=== PATIENT | female | born 1980 | race Caucasian/White ===

== ENCOUNTER 2017-05-31 15:54 | Inpatient (IN) | payer BC ==
[~2017-05-31] VITALS: Ht 167.6 cm; Wt 87.5 kg
[~2017-05-31 15:54] MED LIST: Benzocaine 60 ML TP; DOCU240C67 PO; GLY25 FT; IBUP600T22 PO; LEVO50TA86 PO; LOR5/325 PO; LORA10CA3 PO; Lanolin TP; PNV11TAB; THYR30TA21 PO; TUCKS TOP
[2017-06-05] MEDS ORDERED: OXYTOCIN 30 UNIT/D5LR 500 ML 500 ML IV PRN (05:49)
[2017-06-05] MEDS ORDERED: FAMOTIDINE(*) 20MG/50ML PREMIX 50 ML IVPB PRN (05:49)
[2017-06-05] MEDS ORDERED: FLUSH 10 ML SYR IVP PRN (05:50)
[2017-06-05] MEDS ORDERED: LIDOCAINE 1% LOCAL 300 MG/30ML INJ PRN (05:50)
[2017-06-05] MEDS ORDERED: LIDOCAINE/SOD BICARB 8.4% SYR SC PRN (05:50)
[2017-06-05] MEDS ORDERED: METOCLOPRAMIDE 10 MG/2 ML SDV IVP PRN (05:50)
[2017-06-05] MEDS: LR(*) 1000 ML BAG 1,000 ML IV SCH ×2 (06:20→07:43)
[2017-06-05 06:26] LABS: PLATELET COUNT, AUTOMATED 177 K/uL (150-450)
[2017-06-05] MEDS ORDERED: OXYTOCIN 30 UNIT/D5LR 500 ML 500 ML ONE ×2 (06:29→09:25)
[2017-06-05] MEDS ORDERED: BUPIVACAINE 0.25% MPF INJ EPI PRN (06:40)
[2017-06-05] MEDS ORDERED: fentaNYL CITR 100 MCG/2 ML AMP IT PRN (06:40)
[2017-06-05] MEDS ORDERED: LIDO/EPI 2% MPF 1:200,000 20ML EPI PRN (06:40)
[2017-06-05] MEDS ORDERED: FENTANYL/ROPIVACAINE 100 ML BAG EPI PRN (06:40)
[2017-06-05] MEDS ORDERED: LIDOCAINE/PF 2% 200MG/10ML AMP 200 MG/10 ML AMPUL EPI PRN (06:40)
[2017-06-05] MEDS ORDERED: EPIDURAL KEYS XX PRN (06:40)
[2017-06-05] MEDS ORDERED: BUPIVACAINE 0.5% INJ 30ML VIAL EPI PRN (06:40)
[2017-06-05] MEDS ORDERED: ePHEDrine 25 MG/5 ML DISP.SYR IVP ONE (06:49)
[2017-06-05] MEDS ORDERED: LR(*) 1000 ML BAG 1,000 ML ONE (06:50)
[2017-06-05 07:10] VITALS: BP 135/91; Ht 167.6 cm; Wt 87.5 kg
--- NOTE | 2017-06-05 07:18 | History & Physical ---
History of Present Illness Age of Patient: 36 : 2 Para or TPAL: 1 EDC per LMP: May 31, 2017 EDC per U/S: May 31, 2017 Estimated Gestational Age: 40.4 Chief Complaint painful uterine contractions History of Present Illness Ms. Miranda is a 36yo at 40.5 EGA, GILLES 05/31/17 well dated by LMP and c/w first trimester ultrasound. She presents to labor and delivery with c/o painful uterine contractions since 3am, no LOF, some bloody discharge. Good movement. No GUERRA, no RUQ pain, no nausea/emesis. No other complaints. Antepartum Course: 1. Rh negative 2. 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 hypothyroid, on armour thyroid .25mg QD, liothyroninr 5mcg QD History Patient's Blood Type: A Negative Rubella Status: Immune Group B Strep Screen: Negative Miscellaneous Screens/Cultures: RPR NR, RI, Hep B SAg negative, first trimester aneuploidy testing negative Obstetrical History: 09/2014, 40 week female, with Aicardi syndrome (x-linked) Past Medical History: 1. hypothyroidism as above 2. h/o anxiety and depression, on no medications 3. 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 Family History: FH: diabetes mellitus PGF FH: stroke MGM PGM Med Rec Home Meds Active Scripts Hydrocodone Bit/Acetaminophen (HYDROCODON-ACETAMINOPHEN 5-325) 1 Each Tab, 1-2 EACH PO Q4H Y for PAIN, #10 TAB Prov:MARYANN AYALA MD 09/22/14 Ibuprofen (IBUPROFEN) 600 Mg Tab, 600 MG PO Q6H Y for PAIN for 14 Days, TAB Prov:MARYANN AYALA MD 09/22/14 [Lanolin] 7 GM OINT No Conflict Check, 0 GM TP PRN Y for DISCOMFORT FOR NURSING MOTHERS Prov:MAYRANN AYALA MD 09/22/14 Glycerin/Witch Rosa [place] (PREPARATION H) 1 Pkg Pad, 0 PKG TOP PRN Y for PAIN for 14 Days, PAD Prov:MARYANN AYALA MD 09/22/14 Docusate Calcium (DOCUSATE CALCIUM) 240 Mg Cap, 240 MG PO BID for 14 Days, CAPSULE Prov:MARYANN AYALA MD 09/22/14 [Benzocaine] 60 ML AERS No Conflict Check, 0 ML TP PRN Y for PAIN Prov:MARYANN AYALA MD 09/22/14 Reported Medications Loratadine (CLARITIN) 10 Mg Capsule, 10 MG PO DAILY Y for CONGESTION, CAPSULE 09/20/14 [id number]/Iron Fumarate/Fa/Dss ( 19 TABLET) 1 Each Tablet 09/03/14 Thyroid,Pork (ARMOUR THYROID) 30 Mg Tablet, 30 MG PO 09/03/14 Levothyroxine Sodium (LEVOTHYROXINE SODIUM) 50 Mcg Tablet, 50 MCG PO QDAY 09/03/14 Review of Systems Constitutional: No Fever, No Weight Loss, No Weight Gain, No Chills, No Night Sweats, No Other Neurological: No Syncope, No Confusion, No Weakness, No Dizziness, No Slurred Speech, No Other Eyes: No Vision Change, No Loss of Vision, No Photophobia, No Other ENT: No Hearing Loss, No Sinus Congestion, No Sore Throat, No Ear Ache, No Tinnitus, No Other Cardiovascular: No Chest Pain, No Palpitations, No Orthostatic Hypotension, No Other Respiratory: No Shortness of Breath, No Cough, No Wheezing, No Other Gastrointestinal: No Nausea, No Vomiting, No Diarrhea, No Dysphagia, No Constipation, No Early Satiety, No Hematemesis, No Hematochezia, No Melena, No Abdominal Pain, No Other Genitourinary: No Dysuria, No Hematuria, No Urinary Incontinence, No Other Musculoskeletal: No Pain, No Sprain, No Strain, No Impaired Mobility, No Other Psychiatric: No Depression, No Anxiety, No Other Exam General Exam Vital Signs afebrile, BPs 140s/80s-90s, HR 80s General Apperance: Alert/Awake/No Acute Distress (presents active labor, very uncomfortable, screaming in pain) Neuro: No Gross deficits Eyes: Normal Extraocular Movement & Vison Cardiovascular: Regular Rate and Rhythm Respiratory: Clear to Auscultation Abdomen: Gravid - Non-Tender, Pelvis Non-Contracted Musculoskeletal: No Weakness/Pain Extremities: No Cyanosis,Clubbing or Edema Integumentary: Skin Intact without Lesions or Rash Psychological: Alert & Oriented X3, Appropriate Mood & Affect Vaginal Discharge/Fluid?: Bloody Show, Clear Fluid (arom'd) Cervical Dialation: 8 Cervical Effacement (%): 90 Cervical Position: Anterior Station: 0 Presentation: Vertex Uterine Contractions(Q min): 2 Uterine Contraction Strength: Moderate UC Resting Tone: Soft Fetus Feeling Movement?: Yes Estimated Weight(grams): 3500 Heart Tones: 140 Heart Tone Variabilty: Moderate FHT Accelerations: 15X15 FHT Decelerations: Early FHT Category: I Medical Decision Making Data Points Result Diagram: 06/05/17 0614 Pre-Admit Course Medical Record Review: Yes VTE Prophylasis: Adult Deep Vein Thrombosis/Pulmonary: No Pharmacological Contraindicati: Surgical Contraindication Mechanical Contraindications: Pt at Low Risk for VTE Assessment and Plan Problems: (1) Spontaneous onset of labor Status: Acute Assessment & Plan: 36yo at 40.5 in active labor. Overall reassuring status. GBS negative. Intrathecal pain medication placed due to acute pain and inability to sit for epidural. scalp electrode placed due to inability to assess FHR externally. -anticipate -FSA/toco -epidural if intrathecal wears off TAMRA KHAN MD Jun 05, 2017 07:18
--- NOTE | 2017-06-05 07:35 | Labor Progress Note ---
Labor Subjective Progress Notes Subjective Patient reports feels well, much more comfortable after intrathecal. No GUERRA, no vision changes, no RUQ pain. Feeling Movement?: Yes Vaginal Discharge/Fluid: Bloody Show Labor Pain: Comfortable Neurological: No Headache, No Other Eyes: No Visual Disturbances Labor Objective Vital Signs afebrile BP 140/80 Vaginal Discharge/Fluid?: Bloody Show Cervical Dialation: 9 Cervical Effacement (%): 90 Cervical Consistency: Soft Cervical Position: Anterior Station: 0 Presentation: Vertex Uterine Contractions(Q min): 2 Uterine Contraction Strength: Moderate UC Resting Tone: Soft Fetus Estimated Weight(grams): 3400 Heart Tones: 140 Heart Tone Variabilty: Moderate FHT Accelerations: 15X15 FHT Decelerations: None FHT Category: I General Exam General Appearance: Alert/Awake/No Acute Distress Abdomen: Gravid - Non-Tender Extremities: No Cyanosis,Clubbing or Edema Integumentary: Skin Intact without Lesions or Rash Psychological: Alert & Oriented X3, Appropriate Mood & Affect Other Result Diagram: 06/05/17 0614 Assessment and Plan Problems: (1) Spontaneous onset of labor Status: Acute Assessment & Plan: 36yo at 40.5 in active labor. Overall reassuring status. GBS negative. Intrathecal pain medication placed due to acute pain and inability to sit for epidural. scalp electrode placed due to inability to assess FHR externally. -anticipate -FSA/toco -epidural if intrathecal wears off TAMRA KHAN MD Jun 05, 2017 07:35
[2017-06-05] MEDS ORDERED: fentaNYL CITR 100 MCG/2 ML AMP ONE (08:36)
--- NOTE | 2017-06-05 08:41 | Anesthesia OB Pre-Anes Eval ---
History of Present Illness Anesthesia Start Date: Jun 05, 2017 Anesthesia Start Time: 06:45 OB Anesthesia Diagnosis: spontaneous labor Complications: None. EDC: May 31, 2017 : 2 Para: 1 Pain Ratin Result Diagram: 06/05/17 0614 Height (Inches): 6.00 Weight (Pounds): 193 BMI Calculated: 32.11 Past Medical History Medical History: no pertinent history Surgical History: other Previous Anesthesia: general, epidural Attended Childbirth Classes?: No Hx Anesthesia Reactions: Yes (Patient and female relatives have significant PONV.) Hx Family Anesthesia Reaction: Yes Home Meds Active Scripts Hydrocodone Bit/Acetaminophen (HYDROCODON-ACETAMINOPHEN 5-325) 1 Each Tab, 1-2 EACH PO Q4H Y for PAIN, #10 TAB Prov:MARYANN AYALA MD 09/22/14 Ibuprofen (IBUPROFEN) 600 Mg Tab, 600 MG PO Q6H Y for PAIN for 14 Days, TAB Prov:MARYANN AYALA MD 09/22/14 [Lanolin] 7 GM OINT No Conflict Check, 0 GM TP PRN Y for DISCOMFORT FOR NURSING MOTHERS Prov:MARYANN AYALA MD 09/22/14 Glycerin/Witch Rosa [place] (PREPARATION H) 1 Pkg Pad, 0 PKG TOP PRN Y for PAIN for 14 Days, PAD Prov:MAYRANN AYALA MD 09/22/14 Docusate Calcium (DOCUSATE CALCIUM) 240 Mg Cap, 240 MG PO BID for 14 Days, CAPSULE Prov:MARYANN AYALA MD 09/22/14 [Benzocaine] 60 ML AERS No Conflict Check, 0 ML TP PRN Y for PAIN Prov:MARYANN AYALA MD 09/22/14 Reported Medications Loratadine (CLARITIN) 10 Mg Capsule, 10 MG PO DAILY Y for CONGESTION, CAPSULE 09/20/14 [id number]/Iron Fumarate/Fa/Dss ( 19 TABLET) 1 Each Tablet 09/03/14 Thyroid,Pork (ARMOUR THYROID) 30 Mg Tablet, 30 MG PO 09/03/14 Levothyroxine Sodium (LEVOTHYROXINE SODIUM) 50 Mcg Tablet, 50 MCG PO QDAY 09/03/14 Allergies: Coded Allergies: No Known Drug Allergies (Unverified , 09/20/14) Anesthesia OB ROS Neurological: No migraines/headaches, No seizures, No neuropathy, No other ENT: Denies Tooth caps, Denies Loose teeth, Denies Chipped teeth, Denies Dentures, Denies Bridges, Denies Retainers, Denies Veneers, Denies Implants, Denies Tongue ring, Denies Other Pulmonary: No asthma, No smoker (pks/day/yrs), No other Airway Class: lll Cardiovascular ROS: No edema, No arrhythmia, No other GI ROS: clear liquids Last Solids Date: Jun 04, 2017 Last Solids Time: 20:00 ROS: No Herpes, No STD(s), No Liver Disease, No Renal Disease, No Other Endocrine ROS: No diabetes, No gestational diabetes, No thyroid disorder, No other Musculoskeletal ROS: No low back pain, No low back injury, No scoliosis, No other ASA Classification: 2 Assessment and Plan Anesthesia Plan: SAB Assessment Patient 8 cm, loudly vocalizing pain. On hands and knees and does not wish to change position. OB MD requests intrathecal. Proceeded with that. After patient comfortable discussed further options. Will place epidural if pain increases and patient wishes further pain relief measures be instituted.. Anesthesia Stop Day: Jun 05, 2017 Anesthesia Stop Time: 07:15 Condition Intrathecal provided acceptable relief until patient ready to push. At that time no further intervention was requested and MD chose to use IV pain medication after delivery. REJI ROTHMAN CRNA Jun 05, 2017 07:31
[2017-06-05] MEDS: fentaNYL CITR 100 MCG/2 ML AMP IVP PRN ×2 (08:42→08:49)
--- NOTE | 2017-06-05 08:52 | Procedure Note ---
Anesthetic Placement Note Anesthesia Plan: SAB Permit for Anesthesia Signed: Yes Anesthesia Technique: Other Anesthesia Prep: Chlorhexidine Interspace: L 2-3 Local Anesthetic: 1% Lidocaine, 25 Gauge Needle Anesthesia Needle: 25g Pencan w/Introducer Anesthesia Attempts: 2 Intrathecal Needle: Other Cerebral Spinal Fluid: Yes Anesthesia Tray: Lot Number ([id number]), Expiration Date (2018-04-17), Reference Number ([id number]) Comment: Patient in transition and on hands and knees, unable/unwilling to change position. MD requests I try intrathecal in this position. Skin cleansed. Attempted L3-L4 with 25 g Pencan. Unsuccessful. Dural pop felt at L2-L3 with 24 g Dominique Edwin. Clear CSF seen although slow flow in this position and minimal aspiration. Brief paresthesia to LLE, immediately relieved. 2.5 mg 0.25% bupivacaine with 15 mcg fentanyl injected. Relief noted within 1 contraction. Patient aable to change position and discuss further options with SECTION CHIEF. No further intervention performed. Anesthesia Medications: Intrathecal Dose: mcg Fentanyl (15 mcg), mg Marcaine MPF (2.5), Time (0655) REJI ROTHMAN CRNA Jun 05, 2017 08:52
[2017-06-05] MEDS ORDERED: BENZOCAINE 20% 60 ML BTL TP PRN (09:05)
[2017-06-05] MEDS ORDERED: HYDROCORTISONE 2.5% CR 30GM TB PR PRN (09:05)
[2017-06-05] MEDS ORDERED: GLYCERIN/WITCH HAZEL LEAF 1 PK TP PRN (09:05)
[2017-06-05] MEDS ORDERED: LANOLIN OINT 7 GM TUBE TP PRN (09:05)
[2017-06-05] MEDS ORDERED: ACETAMINOPHEN 325 MG TAB PO PRN (09:05)
[2017-06-05] MEDS ORDERED: MAGNESIUM HYDROXIDE* 30ML UDCP PO PRN (09:05)
[2017-06-05] MEDS ORDERED: MISOPROSTOL 200 MCG TAB PO ONE ×2 (09:25→10:20)
--- NOTE | 2017-06-05 09:25 | OB Delivery Note ---
Delivery Note Vaginal Delivery Type: Spont. Vaginal Delivery Delivery Date: Jun 05, 2017 Delivery Time: 08:29 Estimated Gestational Age(wks): 40.5 Length of Labor Stage I (hrs): 5 Length of Labor Stage II (hrs): 0.5 Labor Stage III (minutes): 5 Delivery Anesthesia: Other (intrathecal) Sex: Male [place] Apgars: 1 Minute (8), 5 Minute (9) Repair Needed: Laceration, 3rd Degree (partial) Estimated Blood Loss: 300 Delivery Complications: Laceration (partial third degree) Notes: Ms. Miranda presented in active labor, 6cm dilated at 05:54am. GBS neg. Rh neg. She was noted to be 6cm dilated, very uncomfortable, and difficult to stay still , preferred standing position. FHR initially in 140s with min to moderate variability. Due to patient positioning, it was difficult to monitor heart rate, therefore amniotomy was performed and scalp electrode was placed. heart rate tracing was noted to be 140s, + accels and moderate variability, category I tracing. With IV in place, and in all-fours position our SUBMARINE OPERATOR placed an intrathecal block which gave some pain relief. tracing remained reassuring at at 08:01 patient was found to be fully dilated. After pushing for approximately 30 minuites, Mrs. Miranda delivered a vigorous male over an intact perineum. The infant's mouth and nares were suctioned with the bulb syringe and the was handed to his mother. After pulsations ceased, the cord was doubly clamped and cut, and a portion of cord blood was obtained as per protocol. The placenta delivered spontaneously and intact. The uterus contracted well with pitocin and massage. The vulva, vagina , and perineum were examined and a partial 3rd degree tear was noted. This was repaired in three layers, and excellent support of rectovaginal septum was noted with digital rectal and vaginal exam post-repair. 's apgars were 8 and 9. weight pending. Office System Analyst in Attendence: TAMRA Haji MD Jun 05, 2017 09:25
[2017-06-05] MEDS ORDERED: LIDOCAINE 1% LOCAL 300 MG/30ML INJ ONE (09:45)
[2017-06-05] MEDS ORDERED: OXYTOCIN 10 UNIT/ML SDV IM ONE (10:20)
[2017-06-05] MEDS ORDERED: MISOPROSTOL 200 MCG TAB ONE (10:32)
--- NOTE | 2017-06-05 10:37 | OB/GYN Progress Note ---
OB Subjective Progress Notes Subjective Called to see patient for vaginal bleeding pp. Nurse weighing pads -- approx 340cc blood loss. Has received cytotec 400mcg buccal mucosa x 1. GI: NEG Nausea, NEG Vomiting, NEG Flatus, NEG Bowel Movement : Vaginal Bleeding, Moderate, Clots Pain: Mild Neurological: No Headache, No Other Eyes: No Visual Disturbances OB Objective Physical Exam Vital Signs Date Time Temp Pulse Resp B/P (MAP) Pulse Ox O2 Delivery O2 Flow Rate FiO2 06/05/17 07:10 88 18 135/91 (106) Room Air General Appearance: Alert/Awake/No Acute Distress Neurological: No Gross deficits Eyes: Normal Extraocular Movement & Vison Respiratory: Clear to Auscultation Abdomen: Fundus Firm, Non-Tender : Normal (lower utrine segmented evacuated of clot) Extremities: No Cyanosis,Clubbing or Edema Integumentary: Skin Intact without Lesions or Rash Psychological: Alert & Oriented X3, Appropriate Mood & Affect Result Diagram: 06/05/17 0614 Assessment and Plan Problems: (1) Spontaneous onset of labor Status: Resolved (2) care and examination immediately after delivery Status: Acute Assessment & Plan: 36yo PPD 0 s/p . Called by RN to evaluate for vaginal bleeding. Lower uterine segment cleared of clot. Fundus firm, bleeding minimal. One additional dose of cytotec 400mcg buccally. Will monitor. TAMRA KHAN MD Jun 05, 2017 10:37
[2017-06-05] MEDS: IBUPROFEN 800 MG TAB PO SCH ×2 (10:44→18:22)
[2017-06-05] MEDS ORDERED: TRANEXAMIC AC 1000 MG/10ML SDV 1,000 MG in DEXTROSE 5% 50 ML BAG 50 ML IVPB ONE (11:55)
[2017-06-05] MEDS: APAP/HYDROCODONE 325/7.5 TAB PO PRN ×3 (12:23→21:08)
[2017-06-05] MEDS ORDERED: ONDANSETRON 4 MG/2 ML VIAL IVP PRN (14:15)
[2017-06-05] MEDS ORDERED: ONDANSETRON 4 MG/2 ML VIAL ONE (14:29)
--- NOTE | 2017-06-05 15:50 | OB/GYN Progress Note ---
OB Subjective Progress Notes Subjective Patient reports feeling well. No dizziness, nausea improved. Feels some light bleeding and cramping while nursing. : Voiding Well, Vaginal Bleeding, Moderate Pain: Mild, Tolerating PO Pain Meds Neurological: No Headache, No Other Eyes: No Visual Disturbances OB Objective Physical Exam Vital Signs Date Time Temp Pulse Resp B/P (MAP) Pulse Ox O2 Delivery O2 Flow Rate FiO2 06/05/17 07:10 88 18 135/91 (106) Room Air Intake and Output 06/06/17 07:00 Intake Total 2560 ml Balance 2560 ml Intake Oral 0 ml IV Total 2560 ml General Appearance: Alert/Awake/No Acute Distress Neurological: No Gross deficits Eyes: Normal Extraocular Movement & Vison Respiratory: Clear to Auscultation Abdomen: Fundus Firm, Non-Tender : Normal (lower utrine segmented evacuated of clot) Extremities: No Cyanosis,Clubbing or Edema Integumentary: Skin Intact without Lesions or Rash Psychological: Alert & Oriented X3, Appropriate Mood & Affect Result Diagram: 06/05/17 0614 Assessment and Plan Problems: (1) Spontaneous onset of labor Status: Resolved (2) care and examination immediately after delivery Status: Acute Assessment & Plan: 36yo PPD 0 s/p . Patient received 800mcg cytotec, 10mg IM pit,and 1g tranexemic acid. Now doing well. Minimal bleeding. Vitals stable and asymptomatic. -will monitor -routine pp care TAMRA KHAN MD Jun 05, 2017 15:50
[2017-06-05 16:03] VITALS: BP 133/82
[2017-06-05] MEDS ORDERED: DOCU240C67 PO (17:21)
[2017-06-05] MEDS ORDERED: FERR-53 PO (17:21)
[2017-06-05] MEDS ORDERED: Acetaminophen/Hydrocodone PO (17:21)
[2017-06-05] MEDS ORDERED: IBUP800T37 PO (17:21)
[2017-06-05] MEDS: FERROUS SULFATE 325 MG TAB PO SCH (17:21)
[2017-06-05 20:05] VITALS: BP 133/64
[2017-06-05] MEDS ORDERED: PREN-127 PO (20:29)
[2017-06-05] MEDS: DOCUSATE CALCIUM 240 MG CAP PO SCH (21:07)
[2017-06-05 23:00] VITALS: BP 122/66
[2017-06-06 02:45] VITALS: BP 113/69
[2017-06-06] MEDS: IBUPROFEN 800 MG TAB PO SCH ×2 (02:45→05:36)
[2017-06-06 07:50] VITALS: BP 133/82
[2017-06-06] MEDS: DOCUSATE CALCIUM 240 MG CAP PO SCH ×2 (08:01→21:36)
[2017-06-06] MEDS: FERROUS SULFATE 325 MG TAB PO SCH ×2 (08:01→17:33)
--- NOTE | 2017-06-06 08:37 | OB/GYN Progress Note ---
OB Subjective Progress Notes Subjective Doing well. Pain controlled and ambulating well. Voiding without difficulty. Bleeding has stabilized nicely. GI: NEG Nausea : Voiding Well Pain: Mild OB Objective Physical Exam Vital Signs Date Time Temp Pulse Resp B/P (MAP) Pulse Ox O2 Delivery O2 Flow Rate FiO2 06/06/17 07:50 98.0 16 133/82 (99) Room Air 06/06/17 02:45 81 93 General Appearance: Alert/Awake/No Acute Distress Neurological: No Gross deficits Eyes: Normal Extraocular Movement & Vison Cardiovascular: Normal Rhythm & Peripheral Pulses, Regular Rate and Rhythm Respiratory: No Respiratory Distress, Clear to Auscultation Abdomen: Soft, Non-Tender, Non-Distended, Fundus Firm, Non-Tender : Normal (lower utrine segmented evacuated of clot) Extremities: No Cyanosis,Clubbing or Edema Integumentary: Skin Intact without Lesions or Rash Psychological: Alert & Oriented X3, Appropriate Mood & Affect Result Diagram: 06/06/17 0619 Assessment and Plan Problems: (1) Spontaneous onset of labor Status: Resolved (2) care and examination immediately after delivery Status: Acute Assessment & Plan: Stable from a standpoint but only 12 hours . Will see how she does today and still doing well, home later. Reviewed precautions and instructions. JOZEF BANKS MD Jun 06, 2017 08:37
--- NOTE | 2017-06-06 08:39 | OB/GYN Discharge Summary ---
Discharge Summary Reason for Hosp/Final Diag: (1) Spontaneous onset of labor Status: Resolved (2) care and examination immediately after delivery Status: Acute Lates Vital Signs Vital Signs Date Time Temp Pulse Resp B/P (MAP) Pulse Ox O2 Delivery O2 Flow Rate FiO2 06/06/17 07:50 98.0 16 133/82 (99) Room Air 06/06/17 02:45 81 93 Weight (Pounds): 193 Result Diagram: 06/06/17618 Condition: Improved Discharge: Home, Self Intermediate Meds Active Scripts Ibuprofen (IBUPROFEN) 800 Mg Tablet, 800 MG PO Q8H@0200,1000,1800 for 14 Days, TAB 1 Refill Prov:TAMRA KHAN MD 06/05/17 Ferrous Sulfate (FERROUS SULFATE) 325 Mg Tablet, 325 MG PO BIDBS for 30 Days, # 60 TAB 1 Refill Prov:TAMRA KAHN MD 06/05/17 [Apap/Hydrocodone 325/7.5 Tab] 7.5 MG/325 MG TAB No Conflict Check, 1-2 EACH PO Q4-6H Y for PAIN for 14 Days, #40 TAB Prov:TAMRA KHAN MD 06/05/17 Docusate Calcium (DOCUSATE CALCIUM) 240 Mg Cap, 240 MG PO BID for 30 Days, #60 CAPSULE 1 Refill Prov:TAMRA HKAN MD 06/05/17 Hydrocodone Bit/Acetaminophen (HYDROCODON-ACETAMINOPHEN 5-325) 1 Each Tab, 1-2 EACH PO Q4H Y for PAIN, #10 TAB Prov:MARYANN AYALA MD 09/22/14 Ibuprofen (IBUPROFEN) 600 Mg Tab, 600 MG PO Q6H Y for PAIN for 14 Days, TAB Prov:MARYANN AYALA MD 09/22/14 [Lanolin] 7 GM OINT No Conflict Check, 0 GM TP PRN Y for DISCOMFORT FOR NURSING MOTHERS Prov:MARYANN AYALA MD 09/22/14 Glycerin/Witch Rosa [place] (PREPARATION H) 1 Pkg Pad, 0 PKG TOP PRN Y for PAIN for 14 Days, PAD Prov:MARYANN AYALA MD 09/22/14 [Benzocaine] 60 ML AERS No Conflict Check, 0 ML TP PRN Y for PAIN Prov:MARYANN AYALA MD 09/22/14 Reported Medications Loratadine (CLARITIN) 10 Mg Capsule, 10 MG PO DAILY Y for CONGESTION, CAPSULE 09/20/14 [id number]/Iron Fumarate/Fa/Dss ( 19 TABLET) 1 Each Tablet 09/03/14 Thyroid,Pork (ARMOUR THYROID) 30 Mg Tablet, 30 MG PO 09/03/14 Levothyroxine Sodium (LEVOTHYROXINE SODIUM) 50 Mcg Tablet, 50 MCG PO QDAY 09/03/14 Follow up Referrals: [facility] - In 6 Weeks @ [facility] with Jozef Banks Md Follow up with: Dr. Banks [phone] Follow up in: 6 wks PP or PO Discharge Diet: As Tolerates Discharge Activity: As Tolerates, No Heavy Lifting x 6 wks, No Heavy Lifting > 10lb, Pelvic Rest Copies to: JOZEF BANKS MD, TRAVIS MD Jun 06, 2017 08:39
--- NOTE | 2017-06-06 08:40 | Anesthesia Post Eval Note ---
Anesthesia Post Eval Note Pt able to participate in Eval: Yes Cardiovascular Status: Satisfactory Respiratory Status: Satisfactory Pain Managment: Satisfactory PO Nausea/Vomiting: Satisfactory Temperature Management: Satisfactory Mental Status: Satisfactory Post-Op Hydration Status: Satisfactory Anesthesia Type: SAB Anesthesia Tolerance: Patient reports some soreness in back an left side mostly, that traveled up toward shoulder. Resolving and not overly bothersome to patient. REJI ROTHMAN CRNA Jun 06, 2017 08:40
[2017-06-06] MEDS: APAP/HYDROCODONE 325/7.5 TAB PO PRN (11:27)
[2017-06-06 12:30] VITALS: BP 128/78
[2017-06-06] MEDS ORDERED: ONDANSETRON 4 MG ODT TABDP SL PRN (12:35)
[2017-06-06] MEDS ORDERED: IBUPROFEN 800 MG TAB PO SCH ×2 (13:00→21:00)
[2017-06-06 19:34] VITALS: BP 130/68
[2017-06-06 22:35] VITALS: BP 120/80
[2017-06-07] MEDS: IBUPROFEN 800 MG TAB PO SCH ×2 (01:16→08:25)
[2017-06-07 04:45] VITALS: BP 115/63
[2017-06-07 07:45] VITALS: BP 132/71
[2017-06-07] MEDS: FERROUS SULFATE 325 MG TAB PO SCH (08:25)
[2017-06-07] MEDS: DOCUSATE CALCIUM 240 MG CAP PO SCH (08:25)
--- NOTE | 2017-06-07 08:41 | OB/GYN Progress Note ---
OB Subjective Progress Notes Subjective Pain controlled, Tolerating diet and activity. Baby . Normal lochia. GI: POS Flatus, NEG Nausea, NEG Vomiting : Voiding Well Pain: Mild OB Objective Physical Exam Vital Signs Date Time Temp Pulse Resp B/P (MAP) Pulse Ox O2 Delivery O2 Flow Rate FiO2 06/07/17 07:45 98.2 95 16 132/71 (91) 95 Room Air General Appearance: Alert/Awake/No Acute Distress Neurological: No Gross deficits Eyes: Normal Extraocular Movement & Vison Cardiovascular: Normal Rhythm & Peripheral Pulses, Regular Rate and Rhythm Respiratory: No Respiratory Distress, Clear to Auscultation Abdomen: Soft, Non-Tender, Non-Distended, Fundus Firm, Non-Tender : Normal (lower utrine segmented evacuated of clot) Extremities: No Cyanosis,Clubbing or Edema, No Edema Integumentary: Skin Intact without Lesions or Rash Psychological: Alert & Oriented X3, Appropriate Mood & Affect Result Diagram: 06/06/17 0619 Assessment and Plan FURNACE CHECKER Plan: Discharge Home Today Problems: (1) Spontaneous onset of labor Status: Resolved (2) care and examination immediately after delivery Status: Acute Assessment & Plan: Pain controlled, Tolerating diet and activity. Baby . Normal lochia. DIANN GALLEGOS MD Jun 07, 2017 08:41
[2017-06-07] MEDS ORDERED: INFLUENZA VIRUS VAC 0.5 ML SYR IM ONLY ONE (09:00)
[2017-06-07] MEDS ORDERED: MEASLES,MUMP,RUBELLA VAC 0.5ML SUBQ ONE (09:00)
[2017-06-07] MEDS ORDERED: DIPHTH/TETANUS/ACEL. PERTUSSIS IM ONLY ONE (09:00)
== END 2017-06-07 11:50 | disposition home or self-care (01) | DRG 774 ==
LOC: OB 06-05 05:45
PROVIDERS: ADMIT Obstetrics & Gynecology; ATTEND Obstetrics & Gynecology
PROC: 10E0XZZ Delivery of Products of Conception, External Approach (ICD-10-PCS; principal; 2017-06-05)
PROC: 0DQR0ZZ Repair Anal Sphincter, Open Approach (ICD-10-PCS; 2017-06-05)
PROC: 10907ZC Drainage of Amniotic Fluid, Therapeutic from Products of Conception, Via Natural or Artificial Opening (ICD-10-PCS; 2017-06-05)
PROC: 4A1H74Z Monitoring of Products of Conception, Cardiac Electrical Activity, Via Natural or Artificial Opening (ICD-10-PCS; 2017-06-05)
DX: O99.284 Endocrine, nutritional and metabolic diseases complicating childbirth (principal); O72.2 Delayed and secondary postpartum hemorrhage; O36.0130 Maternal care for anti-D [Rh] antibodies, third trimester, not applicable or unspecified; E03.9 Hypothyroidism, unspecified; O70.21 Third degree perineal laceration during delivery, IIIa; O76 Abnormality in fetal heart rate and rhythm complicating labor and delivery; F41.8 Other specified anxiety disorders; Z3A.40 40 weeks gestation of pregnancy; Z37.0 Single live birth
CPT/HCPCS: 36415; 85014; 85018; 85025; 85027; 86850; 86900; 86901; J2001; J2405; J2590; J3010; J7060; J7120; S0020; S0119

== ENCOUNTER → 2018-10-25 | Outpatient (CLI) | payer BC ==
[2017-06-05 07:10] VITALS: BMI 32.6
[~2018-10-25] MED LIST changes: +Acetaminophen/Hydrocodone PO; +CIPR-344 PO; +FERR-53 PO; +IBUP800T37 PO; +LACT1CAP6 PO; +LEVO-85 PO; +PREN-127 PO; +SULF-198 PO
== END ==
LOC: LAB 10:33
PROVIDERS: ATTEND Obstetrics & Gynecology
DX: R50.9 Fever, unspecified (principal)
CPT/HCPCS: 87088

== ENCOUNTER 2018-11-24 16:35 | Emergency (ER) | payer BC ==
[2017-06-05 07:10] VITALS: Wt 74.8 kg
[~2018-11-24 16:35] MED LIST changes: -FIDA200T PO; -HYDR-2966 PO; -LOSA50TA80 PO; -VANC125C4 PO
[2018-11-24] MEDS ORDERED: HYDR-2966 PO (16:52)
[2018-11-24] MEDS ORDERED: NS(*) 0.9% 1000 ML BAG 1,000 ML IV ONE (17:12)
--- NOTE | 2018-11-24 17:22 | ER Report ---
History and Physical Time Seen By MD: 16:41 Hx. of Stated Complaint: PATIENT REPORTS BLOOD TINGED STOOL. SHE HAS A RECENT SURGICAL HISTORY WITH ANTIBIOTIC USAGE HPI/ROS CHIEF COMPLAINT: Chronic diarrhea HISTORY OF PRESENT ILLNESS: Patient is a 38 year old F presenting to ED for chronic diarrhea that started one week ago after finishing off 3 antibiotics post surgical repair of a 4th degree vaginal tear from the of her last child. Has been having diarrhea with every BM that improves a little with Imodium but does not resolve. Her stools are loose and mucus like. This morning and this afternoon she had mucus-like diarrhea with a pinkish tint to it which is new for her. Denies Nausea, vomiting, fever or chills. Or anyone at home who is sick with similar symptoms. She left a stool sample at the ED this morning that tested positive for C. Diff Antigen. REVIEW OF SYSTEMS: General: no fever, no chills, no dizziness Respiratory: No cough, no dyspnea. Cardiovascular: No chest pain, no palpitations. Gastrointestinal: No vomiting, no abdominal pain, diarrhea, no constipation Musculoskeletal: No back pain. Allergies: Coded Allergies: No Known Drug Allergies (Unverified , 09/20/14) Home Meds Active Scripts Vancomycin Hcl (VANCOMYCIN HCL) 125 Mg Capsule, 125 MG PO QID, #40 CAPSULE Prov:LAKEISHA SILVA [facility] 11/24/18 Fidaxomicin (DIFICID) 200 Mg Tablet, 200 MG PO BID for 10 Days, #20 TAB Prov:LAKEISHA SILVA [facility] 11/24/18 Reported Medications Hydrochlorothiazide (HYDROCHLOROTHIAZIDE) 25 Mg Tablet, 1 TAB PO QDAY, TAB 11/24/18 Lactobacillus Combination No.4 (PROBIOTIC) 1 Each Capsule, 1 EACH PO, CAPSULE 08/08/18 Thyroid,Pork (ARMOUR THYROID) 30 Mg Tablet, 30 MG PO 09/03/14 Levothyroxine Sodium (LEVOTHYROXINE SODIUM) 50 Mcg Tablet, 50 MCG PO QDAY 09/03/14 Discontinued Reported Medications Loratadine (CLARITIN) 10 Mg Capsule, 10 MG PO DAILY PRN for CONGESTION, CAPSULE 09/20/14 [id number]/Iron Fumarate/Fa/Dss ( 19 TABLET) 1 Each Tablet 09/03/14 Past Medical/Surgical History HTN, thyroid disorder, depression/anxiety, Fhx of anesthesia reaction Reviewed Nurses Notes: Yes Hx Smoking: No Smoking Status: Never Smoker Exposure to Second Hand Smoke?: No Constitutional Vital Sign - Last 24 Hours 11/24/18 11/24/18 11/24/18 11/24/18 16:35 16:38 16:44 17:00 Temp 98.3 Pulse ??? 90 Resp 20 B/P (MAP) 156/109 (125) 156/109 151/112 (125) Pulse Ox 96 O2 Delivery Room Air 11/24/18 11/24/18 11/24/18 11/24/18 17:05 17:30 17:35 18:00 Pulse 82 85 B/P (MAP) 157/107 (124) 152/105 (121) Pulse Ox 85 94 11/24/18 11/24/18 11/24/18 18:05 18:30 18:35 Pulse 79 88 78 B/P (MAP) 170/115 (133) Pulse Ox 100 94 96 Physical Exam General Appearance: The patient is alert, has no immediate need for airway pro tection and no current signs of toxicity. Eyes: Pupils equal and round no injection. Respiratory: Chest is non tender, lungs are clear to auscultation. Cardiac: regular rate and rhythm Gastrointestinal: Abdomen is soft, mild suprapubic tenderness, no masses, bowel sounds normal. Musculoskeletal: Neck: Neck is supple and non tender. Extremities have full range of motion and are non tender. Skin: No rashes or lesions. DIFFERENTIAL DIAGNOSIS: After history and physical exam differential diagnosis was considered for Gastroenteritis, diverticulitis, C. Difficile infection, Fistula Medical Decision Making Data Points Result Diagram: 11/24/18 1731 11/24/18 1731 Laboratory Hematology Test 11/24/18 17:31 White Blood Count 10.4 k/uL (4.5-11.0) Red Blood Count 4.27 M/uL (4.17-5.56) Hemoglobin 11.7 g/dL (12.0-16.0) L Hematocrit 34.9 % (34.0-47.0) Mean Corpuscular Volume 81.7 fL (80.0-96.0) Mean Corpuscular Hemoglobin 27.3 pg (26.0-33.0) Mean Corpuscular Hemoglobin Concent 33.5 g/dL (32.0-36.0) Red Cell Distribution Width 15.3 % (11.5-14.5) H Platelet Count 308 K/uL (150-450) Mean Platelet Volume 8.4 fL (7.2-11.1) Neutrophils (%) (Auto) 75.3 % (39.4-72.5) H Lymphocytes (%) (Auto) 17.2 % (17.6-49.6) L Monocytes (%) (Auto) 5.2 % (4.1-12.4) Eosinophils (%) (Auto) 1.7 % (0.4-6.7) Basophils (%) (Auto) 0.6 % (0.3-1.4) Nucleated RBC Relative Count (auto) 0.0 /100WBC Neutrophils # (Auto) 7.9 K/uL (2.0-7.4) H Lymphocytes # (Auto) 1.8 K/uL (1.3-3.6) Monocytes # (Auto) 0.5 K/uL (0.3-1.0) Eosinophils # (Auto) 0.2 K/uL (0.0-0.5) Basophils # (Auto) 0.1 K/uL (0.0-0.1) Nucleated RBC Absolute Count (auto) 0.00 K/uL Chemistry Test 11/24/18 17:31 Sodium Level 139 mmol/L (137-145) Potassium Level 3.8 mmol/L (3.5-5.0) Chloride Level 106 mmol/L (98-107) Carbon Dioxide Level 24 mmol/L (22-31) Blood Urea Nitrogen 9 mg/dl (7-18) Creatinine 0.70 mg/dl (0.52-1.04) Glomerular Filtration Rate Calc > 60.0 Random Glucose 100 mg/dl (75-110) Calcium Level 9.3 mg/dl (8.4-10.2) Total Bilirubin 0.4 mg/dl (0.2-1.3) Aspartate Amino Transf (AST/SGOT) 17 U/L (0-35) Alanine Aminotransferase (ALT/SGPT) 31 U/L (0-56) Alkaline Phosphatase 91 U/L (0-126) Total Protein 7.1 g/dl (6.3-8.2) Albumin 4.1 g/dl (3.5-5.0) Serology Test 11/24/18 09:00 ED Course/Re-evaluation ED Course Patient presented to ED with chronic diarrhea that has been occuring for the last week after taking a course of several antibiotics post surgery. Had been treating with immodium which helped transiently. Differential diagnoses were considered. patient had presented to the ED this morning and left a stool sample which was positive for the C. diff antigen. She returned to ED in the afternoon for treatment. CBC, CMP, UA, stool cultures, O&P studies were drawn. Stool cultures were positive for RBC and WBCs otherwise there were no acute findings. Patient expressed understanding of her condition. Was given an Rx for Fidaxomicin 200mg BID x10 days. Patient discharged. We will contact by the pharmacy after the patient was discharged. They were not able to fill the Fidaxomicin. We will place the patient on vancomycin 125 mg 4 times a day 10 days. Decision to Disposition Date: Nov 24, 2018 Decision to Disposition Time: 18:25 Depart Departure Latest Vital Signs Vital Signs Date Time Temp Pulse Resp B/P (MAP) Pulse Ox O2 Delivery O2 Flow Rate FiO2 11/24/18 18:35 78 96 11/24/18 18:30 170/115 (133) 11/24/18 16:44 98.3 20 Room Air Impression: Primary Impression: Clostridium difficile infection Condition: Improved Disposition: HOME OR SELF-CARE New Scripts Vancomycin Hcl (VANCOMYCIN HCL) 125 Mg Capsule 125 MG PO QID, #40 CAPSULE Prov: LAKEISHA SILVA 11/24/18 Fidaxomicin (DIFICID) 200 Mg Tablet 200 MG PO BID for 10 Days, #20 TAB Prov: LAKEISHA SILVA 11/24/18 Patient Instructions: Clostridium Difficile Infection (ED) Additional Instructions: Take medication as instructed. Return to ED if symptoms worsen. LAKEISHA SILVA Nov 24, 2018 17:22
[2018-11-24 17:49] LABS: PLATELET COUNT, AUTOMATED 308 K/uL (150-450)
[2018-11-24 18:30] VITALS: BP 170/115
[2018-11-24] MEDS ORDERED: FIDA200T PO (18:40)
[2018-11-24] MEDS ORDERED: VANC125C4 PO (19:13)
== END 2018-11-24 18:52 | disposition home or self-care (01) ==
LOC: ER 16:51
DX: R19.7 Diarrhea, unspecified (principal); B96.89 Other specified bacterial agents as the cause of diseases classified elsewhere
CPT/HCPCS: 82274; 83630; 85025; 87045; 87177; 96360; 99283; J7030; 82040; 82247; 82310; 82374; 82435; 82565; 82947; 84075; 84132; 84155; 84295; 84450; 84460; 84520

== ENCOUNTER → 2018-11-24 | Outpatient (CLI) | payer BC ==
[2017-06-05 07:10] VITALS: BMI 32.6
[~2018-11-24] MED LIST changes: +FIDA200T PO; +HYDR-2966 PO; +LOSA50TA80 PO; +VANC125C4 PO
== END ==
LOC: LAB 08:52
PROVIDERS: ATTEND Obstetrics & Gynecology
DX: R19.7 Diarrhea, unspecified (principal)
CPT/HCPCS: 87324; 87449; 87493